=== PATIENT | female | born 1990 | race Caucasian/White ===

== ENCOUNTER 2025-03-25 15:27 | Emergency (ER) | payer OTHER ==
--- NOTE | 2025-03-25 15:49 | ED ---
Extremity Problem HPI - General Stated complaint: R arm pain Time Seen by Provider: 03/25/25 15:38 Source: patient Mode of arrival: ambulatory Limitations: no limitations - History of Present Illness Initial comments: This patient is a 34-year-old woman who presents with complaint of right shoulder pain. The patient states that it started about an hour ago. She is not able to relate any inciting factor. She states she cannot move her right arm without severe pain. The patient denies previous injury. MD Complaint: extremity pain Onset/Timin -: hour(s) Location: right, upper extremity History of Same: No Severity scale (1-10): 10 Quality: sharp Consistency: constant Improves with: immobilization Worsens with: other (Movement) Associated Symptoms: denies other symptoms - Related Data Previous Rx's Medication Instructions Recorded Ibuprofen [Motrin] 600 mg PO Q8HR PRN #20 tab 03/25/25 Allergies Allergy/AdvReac Type Severity Reaction Status Date / Time No Known Allergies Allergy Verified 03/25/25 16:21 Review of Systems ROS Statement: Those systems with pertinent positive or pertinent negative responses have been documented in the HPI. ROS Other: All systems not noted in ROS Statement are negative. Constitutional: Denies: fever Cardiovascular: Denies: chest pain Gastrointestinal: Denies: abdominal pain Musculoskeletal: Reports: as per HPI, arthralgia. Denies: back pain Skin: Denies: rash Neurological: Denies: headache, weakness General Exam General appearance: alert, other (Patient does appear to be in pain) Head exam: Present: atraumatic, normocephalic Eye exam: Present: normal appearance Neck exam: Present: normal inspection, full ROM. Absent: tenderness Respiratory exam: Present: normal lung sounds bilaterally. Absent: respiratory distress, wheezes, rales, rhonchi, stridor, accessory muscle use Cardiovascular Exam: Present: regular rate, normal rhythm, normal heart sounds. Absent: systolic murmur, diastolic murmur, rubs, gallop GI/Abdominal exam: Present: soft. Absent: tenderness, guarding Right Shoulder Exam: Present: tenderness, dislocation. Absent: full ROM, swelling, abrasion, laceration, ecchymosis, erythema Upper Arm exam: Absent: tenderness, swelling Elbow exam: Present: normal inspection, full ROM. Absent: tenderness, swelling Forearm Wrist exam: Present: normal inspection, full ROM. Absent: tenderness, swelling Hand Wrist exam: Present: normal inspection, full ROM. Absent: tenderness, swelling Neuro motor exam: Present: other (Exam limited as patient refusing to participate with neurologic exam) Vascular: Present: normal capillary refill. Absent: vascular compromise Back exam: Present: normal inspection. Absent: tenderness Neurological exam: Present: alert Skin exam: Present: warm, dry, intact, normal color. Absent: rash Course Vital Signs 03/25/25 03/25/25 03/25/25 16:16 16:50 16:55 Temperature 97.7 F Pulse Rate 71 67 80 Respiratory 22 18 18 Rate Blood Pressure 144/105 149/105 126/95 O2 Sat by Pulse 100 100 100 Oximetry 03/25/25 03/25/25 03/25/25 17:00 17:10 17:25 Temperature Pulse Rate 68 80 88 Respiratory 18 18 18 Rate Blood Pressure 120/93 139/92 136/93 O2 Sat by Pulse 98 100 99 Oximetry 03/25/25 03/25/25 03/25/25 17:40 18:05 19:05 Temperature Pulse Rate 64 72 105 H Respiratory 18 18 18 Rate Blood Pressure 127/93 131/97 122/95 O2 Sat by Pulse 99 100 97 Oximetry Procedures - Orthopedic Joint Reduction Joint #1 Consent Obtained: written consent Side: right Joint Reduction Location: shoulder Analgesia: procedural sedation Shoulder Technique Used (if applicable): external rotation Post-Reduction Neuro Exam: intact Post-Reduction Vascular Exam: intact Post Reduction X-Ray Obtained: Yes Post Reduction X-Ray Results: reduced Splint Applied: Yes Patient Tolerated Procedure: well, no complications - Procedural Sedation *Procedural Sedation Start Time: 16:50 *Procedural Sedation Stop Time: 17:06 *Risks,benefits, and alternative therapies discussed?: Yes *Patient indicates understanding of risk/benefit discussion?: Yes *Indications: fracture/dislocation reduction *Previous Adverse Reaction to Anesthesia/Sedation?: Yes * Testing Complete?: No *ASA Class: I *Mallampati Airway Score: 3 Preparation: energy efficiency specialist applied, pulse oximeter, capnometry used, supplemental O2 applied, suction/airway equipment at bedside, IV secured IV Propofol Dose (mgs): 85 Complications: none Patient Tolerated Procedure: well, no complications Additional Comments: Patient is a 34-year-old woman who states she has implantable control and declines test. States that last food intake was in the evening yesterday. She had water approximately 5 hours ago. Discussed risks, benefits, indications, patient consented to procedural sedation for right shoulder reduction. She was given propofol and aliquots to obtain reasonable sedation and then shoulder was reduced with no complications with gentle external rotation and distal traction. I remained in the room until patient conscious and no neurovascular deficits. The postreduction x-ray shows no fracture and good reduction result as interpreted by myself. Medical Decision Making - Medical Decision Making Patient had AP shoulder x-ray that I interpreted as showing shoulder dislocation. No evident fracture. No foreign body. The postreduction x-ray showed no fracture and good reduction as interpreted by myself. Was pt. sent in by a medical professional or institution (, PA, [employer], urgent care, hospital, or fci...) When possible be specific @ -[No] Did you speak to anyone other than the patient for history (EMS, parent, family, police, friend...)? What history was obtained from this source @ -[No] Did you review nursing and triage notes (agree or disagree)? Why? @ -[I reviewed and agree with nursing and triage notes] Were old charts reviewed (outside hosp., previous admission, EMS record, old EKG, old radiological studies, urgent care reports/EKG's, fci records)? Report findings @ -[No old charts were reviewed] Differential Diagnosis (chest pain, altered mental status, abdominal pain women, abdominal pain men, vaginal bleeding, weakness, fever, dyspnea, syncope, headache, dizziness, GI bleed, back pain, seizure, CVA, palpatations, mental health, musculoskeletal)? @ -[Differential Musculoskeletal Muscular strain, contusion, ligament sprain, fracture, arthritis, septic arthritis, bursitis, cellulitis, muscle spasm, nerve compression, DVT, arterial occlusion, herpes zoster, electrolyte abnormality, tumor.... This is not meant to be in all inclusive list EKG interpreted by me (3pts min.). @ -[As above] X-rays interpreted by me (1pt min.). @ -[I interpreted as above, both the prereduction and postreduction x-rays CT interpreted by me (1pt min.). @ -[None done] U/S interpreted by me (1pt. min.). @ -[None done] What testing was considered but not performed or refused? (CT, X-rays, U/S, labs)? Why? @ -[None] What meds were considered but not given or refused? Why? @ -[None] Did you discuss the management of the patient with other professionals (dayanara almanza i.e. , PA, [employer], lab, RT, psych nurse, public health social worker, hoe worker, teacher, employment security officer, transplant case manager)? Give summary @ -[No] Was smoking cessation discussed for >3mins.? @ -[No] Was critical care preformed (if so, how long)? @ -[No] Were there social determinants of health that impacted care today? How? (Homelessness, low income, unemployed, alcoholism, drug addiction, transportatio n, low edu. Level, literacy, decrease access to med. care, retirement, rehab)? @ -[No] Was there de-escalation of care discussed even if they declined (Discuss DNR or withdrawal of care, Hospice)? DNR status @ -[No] What co-morbidities impacted this encounter? (DM, HTN, Smoking, COPD, CAD, Cancer, CVA, ARF, Chemo, Hep., AIDS, mental health diagnosis, sleep apnea, morbid obesity)? @ -[None] Was patient admitted / discharged? Hospital course, mention meds given and route, prescriptions, significant lab abnormalities, going to OR and other pertinent info. @ -[Patient is a 34-year-old woman presenting with shoulder pain and did appear to have shoulder dislocation. X-ray confirmed this and after discussion of risks, benefits, indications, the patient did consent to have procedural sedation and shoulder reduction which was performed with no complication. Discussed appropriate further care and follow-up as well as return parameters. Undiagnosed new problem with uncertain prognosis? @ -[No] Drug Therapy requiring intensive monitoring for toxicity (Heparin, Nitro, Insulin, Cardizem)? @ -[No] Were any procedures done? @ -[I performed the shoulder reduction, see the note above, also procedural sedation, see the note Diagnosis/symptom? @ -Acute shoulder dislocation with reduction in the department Acute, or Chronic, or Acute on Chronic? @ -[Acute Uncomplicated (without systemic symptoms) or Complicated (systemic symptoms)? @ -[Uncomplicated Side effects of treatment? @ -[No] Exacerbation, Progression, or Severe Exacerbation? @ -[No] Poses a threat to life or bodily function? How? (Chest pain, USA, CT, pneumonia, PE, COPD, DKA, ARF, appy, cholecystitis, CVA, Diverticulitis, Homicidal, Suicidal, threat to staff... and all critical care pts) @ -[No] All treatments are based on ideal body weight as in ED triage Disposition Clinical Impression: Dislocation of shoulder region Disposition: HOME SELF-CARE Condition: Good Instructions (If sedation given, give patient instructions): Shoulder Dislocation (ED), Moderate Sedation (ED) Prescriptions: Ibuprofen [Motrin] 600 mg PO Q8HR PRN #20 tab PRN Reason: Pain Is patient prescribed a controlled substance at d/c from ED?: No Referrals: None,Stated [Primary Care Provider] - 1-2 days Remigio Chatman MD [STAFF PHYSICIAN] - 1-2 days
--- NOTE | 2025-03-25 16:05 | XR ---
EXAMINATION TYPE: XR shoulder limited RT DATE OF EXAM: 03/25/2025 CLINICAL INDICATION: Female, 34 years old with history of dislocation, pain TECHNIQUE: 1 View of the right shoulder the obtained. COMPARISON: None. FINDINGS: There is medial inferior positioning of the humeral glenoid. The acromioclavicular joint space appears within normal limits. No acute osseous fracture. Old fracture of the right lateral sixt h rib is seen IMPRESSION: There is anterior glenohumeral joint dislocation. [facility], , 03/25/2025 4:02 PM
[2025-03-25 16:21] VITALS: TEMP 97.7
[2025-03-25] MEDS: MORPHINE SULFATE 4 MG/ML SYRINGE IV STA (16:30)
[2025-03-25] MEDS: PROPOFOL 10 MG/ML 20 ML VIAL IV ONE (16:31)
[2025-03-25 16:56] VITALS: RESP 18
--- NOTE | 2025-03-25 17:20 | XR ---
EXAMINATION TYPE: XR shoulder limited RT DATE OF EXAM: 03/25/2025 CLINICAL INDICATION: Female, 34 years old with history of POST REDUCTION, pain TECHNIQUE: 1 views of the right shoulder is obtained. COMPARISON: Right shoulder x-ray earlier today.. FINDINGS: There is improved satisfactory positioning of the humeral head relative to osseous glenoid after reduction. No acute fracture. IMPRESSION: Successful interval reduction. [facility], , 03/25/2025 5:18 PM
[2025-03-25 19:06] VITALS: BP 122/95; PULSE 105
== END 2025-03-25 19:09 | disposition home or self-care (01) ==
LOC: EC 15:27
DX: S43.004A Unspecified dislocation of right shoulder joint, initial encounter (principal); X50.0XXA Overexertion from strenuous movement or load, initial encounter
CPT/HCPCS: 73020; 99283; 23650; J2270; J2704